=== PATIENT | male | born 1955 | race Caucasian/White ===

== ENCOUNTER → 2017-10-30 | Day surgery (SDC) | payer MEDICARE, MEDICAID ==
[~2017-10-30] MED LIST: PROPOFOL 20 ML IV
[2017-10-30 08:43] LABS: POC GLUCOSE 83 mg/dL (70-99)
== END | disposition home or self-care (01) ==
LOC: SURG 08:32
DX: Z43.1 Encounter for attention to gastrostomy (principal); K21.0 Gastro-esophageal reflux disease with esophagitis; K22.8 Other specified diseases of esophagus; I25.2 Old myocardial infarction; E11.9 Type 2 diabetes mellitus without complications; G40.909 Epilepsy, unspecified, not intractable, without status epilepticus; F25.9 Schizoaffective disorder, unspecified; F32.9 Major depressive disorder, single episode, unspecified; I26.99 Other pulmonary embolism without acute cor pulmonale; Z79.82 Long term (current) use of aspirin; Z79.899 Other long term (current) drug therapy
CPT/HCPCS: 43239; 43247; 82962; 88305; J2704

== ENCOUNTER 2018-07-10 06:04 | Observation (INO) | payer MEDICARE, MEDICAID ==
[2018-07-10] VITALS (10 sets, daily range): BP systolic 107–140; BP diastolic 70–95
[~2018-07-10] VITALS: Ht 188 cm; Wt 79.4 kg
[~2018-07-10 06:04] MED LIST changes: +ACET325T9 PO; +ACET500T68 PO; +ALPR0.254 PO; +AMIO200T4 PO; +ASPI325T8 PO; +ASPI81TA50 PO; +BUSP15TA PO; +FAMO20TA5 PO; +FOLI1TAB16 PO; +GABA-585 PO; +IPRA0.2S5 NEB; +LACT1CAP24 PO; +LMFO1TAB PO; +MELA3TAB2 PO; +MIRT15TA3 PO; +OMEP20TA8 PO; +POLY17PO29 PO; -PROPOFOL 20 ML IV; +QUET25TA5 PO; +QUET50TA5 PO; +RIVA15TA PO; +SERT100T PO; +SIMV10TA3 PO; +THIA100T8 PO; +VALP250S3 PO
[2018-07-10] MEDS ORDERED: DEXAMETHASONE SOD PHOS 20 MG/5 ML VIAL. ONE (06:31)
[2018-07-10] MEDS ORDERED: ONDANSETRON PF 4 MG/2 ML VIAL. ONE (06:31)
[2018-07-10] MEDS ORDERED: LIDOCAINE 2% PF 5 ML VIAL. ONE ×2 (06:31)
[2018-07-10] MEDS ORDERED: ROCURONIUM 50 MG/5 ML VIAL. ONE (06:32)
[2018-07-10] MEDS ORDERED: IV RINGERS,LACTATED 1000ML 1,000 ML IV SCH (07:00)
[2018-07-10] MEDS ORDERED: DEXTROSE 50% 25 GM / 50ML DISP.SYRIN. IV ONE (07:00)
[2018-07-10] MEDS ORDERED: LIDOCAINE 1% PF 2 ML VIAL. ID PRN (07:00)
[2018-07-10] MEDS ORDERED: HYDROmorphone 2 MG/ML VIAL IV PRN ×2 (07:00→09:00)
[2018-07-10] MEDS ORDERED: PROCHLORPERAZINE 10 MG/2 ML VIAL. IV PRN (07:00)
[2018-07-10] MEDS ORDERED: ONDANSETRON PF 4 MG/2 ML VIAL. IV PRN (07:00)
[2018-07-10] MEDS ORDERED: MORPHINE SULFATE 4 MG/ML VIAL. IV PRN (07:00)
[2018-07-10] MEDS ORDERED: fentaNYL PF VIAL 100 MCG/2 ML VIAL IV PRN (07:00)
[2018-07-10] MEDS ORDERED: fentaNYL PF VIAL 100 MCG/2 ML VIAL ONE (07:17)
[2018-07-10] MEDS ORDERED: ETOMIDATE 20 MG/10 ML VIAL. IV ONE (07:17)
[2018-07-10] MEDS ORDERED: MIDAZOLAM HCL/PF 2 MG/2 ML VIAL. ONE (07:22)
[2018-07-10] MEDS ORDERED: GLYCOPYRROLATE 1 MG/5 ML VIAL. ONE (07:35)
[2018-07-10] MEDS ORDERED: NEOSTIGMINE 10 MG/10 ML VIAL. ONE (07:47)
[2018-07-10] MEDS ORDERED: SEVOFLURANE 61 TO 120 MINUTES. IH ONE (07:48)
[2018-07-10] MEDS ORDERED: hydrALAZINE 20 MG/ML VIAL. ONE (08:11)
[2018-07-10] MEDS ORDERED: IV 1/2 NORMAL SALINE 1,000 ML IV SCH (08:47)
--- NOTE | 2018-07-10 08:57 | PDOC4 ---
Operative Note Operative Note Operative Note: Preoperative Diagnosis: Ventral hernia Postoperative Diagnosis: Same Procedure: Ventral hernia repair with mesh Surgeon: Florentino Anesthesia: Gen. Harness Fitter: Daiana Petersen EBL: 10 mL Specimen: None Drains: None Complications: None Indication: The patient is a 62-year-old male who is referred because of an upper abdominal hernia that resulted following placement of the PEG tube. He requests operative repair and the details of surgery were discussed. The risks were also noted which include bleeding, infection, recurrence, pain, anesthetic risk, visceral injury, potential need for additional surgery or procedure. He understands and would like to proceed. Description: The patient was taken to the operating room and placed supine on the operating table. Gen. anesthesia was performed. The abdomen was prepped with ChloraPrep and draped with sterile towels, sheets, and an Ioban. A vertical midline incision was made in the upper abdomen overlying the hernia. Cautery dissection was carried down to the fascia. The margins of the hernia defect were delineated. The hernia measured approximately 2.5 cm in diameter. A preperitoneal plane was then developed circumferentially around the border of the hernia defect. A medium sized Ventralex ST mesh was then placed in this preperitoneal plane. The mesh was sutured to the fascia at the 12, 3, 6, 9:00 positions using 0 Prolene in a horizontal mattress fashion. The mesh rested well providing full coverage with overlap of the hernia defect. The fascial edges were closed over the mesh with 0 Prolene. The subcutaneous tissue was approximated with 3-0 Vicryl and the skin was closed with 4-0 Monocryl. A sterile dressing was then applied. The patient tolerated the procedure well and was sent to the recovery room in stable condition. At the end of the case all counts were correct. JENNY GRAVES MD Jul 10, 2018 08:57
[2018-07-10] MEDS: fentaNYL PF VIAL 100 MCG/2 ML VIAL IV PRN ×3 (09:00→10:05)
[2018-07-10] MEDS: GABAPENTIN 100 MG CAPSULE. PO SCH ×4 (09:00→20:51)
[2018-07-10] MEDS ORDERED: ALPRAZolam 0.25 MG TABLET PO PRN (09:00)
[2018-07-10] MEDS: AMIODARONE HCL 200 MG TABLET. PO SCH (09:00)
[2018-07-10] MEDS ORDERED: oxyCODONE/APAP 5/325 1 TAB TABLET PO PRN ×2 (09:00)
[2018-07-10] MEDS ORDERED: 0.9 % SODIUM CHLORIDE 10 ML DISP.SYRIN. IV PRN (09:00)
[2018-07-10] MEDS: POLYETHYLENE GLYCOL 3350 17 GM PACKET. PO SCH (09:00)
[2018-07-10] MEDS: LACTOBACILLUS RHAMNOSUS GG 1 CAPSULE. PO SCH ×3 (09:00→20:51)
[2018-07-10] MEDS: VALPROIC ACID 250 MG CAPSULE. PO SCH ×2 (09:15→20:51)
[2018-07-10] MEDS: QUEtiapine 25 MG TABLET. PO SCH ×4 (09:15→20:51)
[2018-07-10] MEDS: busPIRone 10 MG TABLET. PO SCH ×3 (09:15→20:50)
--- NOTE | 2018-07-10 11:00 | NUR ---
pt arrived to floor from PACU in stable condition at 1015. pt is alert but confused (slight confusion is pt baseline per mother). mother is at bedside. pt is not complaining of any pain at this time. pt is on 2LNC. pt dressing is CDI. received report from SALEEM Ramos in PACU. will continue to monitor.
[2018-07-10] MEDS: PANTOPRAZOLE 40 MG TABLET.DR. PO SCH (11:19)
[2018-07-10] MEDS ORDERED: LORA0.5T96 PO (11:51)
[2018-07-10] MEDS ORDERED: MULT1TAB52 PO (11:51)
[2018-07-10] MEDS ORDERED: GUAI473L15 PO (11:51)
[2018-07-10] MEDS ORDERED: MELA3TAB2 PO (11:51)
[2018-07-10] MEDS ORDERED: BISA-42 RC (11:51)
[2018-07-10] MEDS ORDERED: ALBU0.63 NEB (11:51)
[2018-07-10] MEDS: ONDANSETRON PF 4 MG/2 ML VIAL. IV PRN (12:47)
[2018-07-10] MEDS: DOCUSATE SODIUM 100 MG CAPSULE. PO SCH ×2 (12:48→20:51)
[2018-07-10] MEDS: ASPIRIN 325 MG TABLET PO SCH (12:48)
[2018-07-10] MEDS: SERTRALINE 50 MG TABLET. PO SCH (12:48)
[2018-07-10] MEDS ORDERED: NON FORMULARY ITEM (Melatonin 3 MG) PO PRN (15:00)
[2018-07-10] MEDS ORDERED: guaiFENesin/CODEINE 100mg/10mg 5 ML LIQUID PO PRN (15:00)
[2018-07-10] MEDS ORDERED: ALBUTEROL SULFATE 2.5 MG/3 ML NEBU. NEB PRN (15:00)
[2018-07-10] MEDS ORDERED: LORazepam 0.5 MG TABLET PO PRN (15:00)
--- NOTE | 2018-07-10 15:36 | PDOC1 ---
History and Physical Date of Admission Date of Admission DATE: 07/10/18 TIME: 15:31 Source Source: Chart review, Patient History of Present Illness History of Present Illness elective admit s/p ventral hernia repair Prior abd problem known, started after PEG removed, PEG had been placed about a year ago s/p HI x2 cardiac arrest and resp failure due to CHF. he had been at [facility] November 2017, when PEG removed, and he reports still living there he is either confused post-op or has ongoing chronic confusion. Family History Family History: Other Social History Smoke: No ALCOHOL: none Drugs: None Current Medications Current Medications Current Medications Ondansetron HCl (Zofran) 4 mg PRN Q6HRS PRN IV NAUSEA/VOMITING; Start 07/10/18 at 07:00; Stop 07/11/18 at 06:59 Fentanyl Citrate (Fentanyl 2ml Vial) 25 mcg PRN Q5MIN PRN IV MILD PAIN; Start 07/10/18 at 07:00; Stop 07/11/18 at 06:59 Fentanyl Citrate (Fentanyl 2ml Vial) 50 mcg PRN Q5MIN PRN IV MODERATE TO SEVERE PAIN Last administered on 07/10/18at 10:05; Start 07/10/18 at 07:00; Stop 07/11/18 at 06:59 Morphine Sulfate (Morphine Sulfate) 1 mg PRN Q10MIN PRN IV SEVERE PAIN; Start 07/10/18 at 07:00; Stop 07/11/18 at 06:59 Ringer's Solution 1,000 ml @ 30 mls/hr Q24H IV Last administered on 07/10/18at 06:42; Start 07/10/18 at 07:00; Stop 07/10/18 at 18:59 Lidocaine HCl (Xylocaine-Mpf 1% 2ml Vial) 2 ml PRN 1X PRN ID IV START; Start at 07:00; Stop 07/11/18 at 06:59 Hydromorphone HCl (Dilaudid) 0.5 mg PRN Q10MIN PRN IV SEV PAIN, Second choice; Start 07/10/18 at 07:00; Stop 07/11/18 at 06:59 Prochlorperazine Edisylate (Compazine) 5 mg PACU PRN PRN IV NAUSEA, MRX1; Start 07/10/18 at 07:00; Stop 07/11/18 at 06:59 Cefazolin Sodium/ Dextrose 50 ml @ 100 mls/hr 1X PREOP PRN IV PRE-OP Last administered on 07/10/18at 07:30; Start 07/10/18 at 06:00; Stop 07/11/18 at 21:00 Lidocaine HCl (Lidocaine Pf 2% Vial) 5 ml STK-MED ONCE .ROUTE ; Start 07/10/18 at 06:31; Stop 07/10/18 at 06:32; Status DC Lidocaine HCl (Lidocaine Pf 2% Vial) 5 ml STK-MED ONCE .ROUTE ; Start 07/10/18 at 06:31; Stop 07/10/18 at 06:32; Status DC Dexamethasone Sodium Phosphate (Decadron) 20 mg STK-MED ONCE .ROUTE ; Start at 06:31; Stop 07/10/18 at 06:32; Status DC Ondansetron HCl (Zofran) 4 mg STK-MED ONCE .ROUTE ; Start 07/10/18 at 06:31; Stop 07/10/18 at 06:32; Status DC Rocuronium [place] (Zemuron) 50 mg STK-MED ONCE .ROUTE ; Start 07/10/18 at 06:32 ; Stop 07/10/18 at 06:33; Status DC Dextrose (Dextrose 50%-Water Syringe) 25 gm 1X ONCE IV Last administered on at 07:10; Start 07/10/18 at 07:00; Stop 07/10/18 at 07:01; Status DC Etomidate (Amidate) 20 mg STK-MED ONCE IV ; Start 07/10/18 at 07:17; Stop at 07:18; Status DC Fentanyl Citrate (Fentanyl 2ml Vial) 100 mcg STK-MED ONCE .ROUTE ; Start at 07:17; Stop 07/10/18 at 07:18; Status DC Midazolam HCl (Versed) 2 mg STK-MED ONCE .ROUTE ; Start 07/10/18 at 07:22; Stop 07/10/18 at 07:23; Status DC Glycopyrrolate (Robinul) 1 mg STK-MED ONCE .ROUTE ; Start 07/10/18 at 07:35; Stop 07/10/18 at 07:36; Status DC Neostigmine Methylsulfate (Bloxiverz) 10 mg STK-MED ONCE .ROUTE ; Start at 07:47; Stop 07/10/18 at 07:48; Status DC Sevoflurane (Ultane) 60 ml STK-MED ONCE IH ; Start 07/10/18 at 07:48; Stop 07/10 at 07:49; Status DC Hydralazine HCl (Apresoline Inj) 20 mg STK-MED ONCE .ROUTE ; Start 07/10/18 at 08:11; Stop 07/10/18 at 08:12; Status DC Sodium Chloride (Normal Saline Flush) 3 ml QSHIFT PRN IV AFTER MEDS AND BLOOD DRAWS; Start 07/10/18 at 09:00 Sodium Chloride 1,000 ml @ 80 mls/hr [id number] IV Last administered on at 12:28; Start 07/10/18 at 08:47 Oxycodone/ Acetaminophen (Percocet 5/325) 1 tab PRN Q4HRS PRN PO MILD PAIN, 1ST CHOICE; Start 07/10/18 at 09:00 Oxycodone/ Acetaminophen (Percocet 5/325) 2 tab PRN Q4HRS PRN PO MODERATE PAIN , SEVERE PAIN; Start 07/10/18 at 09:00 Hydromorphone HCl (Dilaudid) 0.2 mg PRN Q1HR PRN IV PAIN Last administered on at 12:58; Start 07/10/18 at 09:00 Docusate Sodium (Colace) 100 mg BID PO Last administered on 07/10/18at 12:48; Start 07/10/18 at 09:00 Ondansetron HCl (Zofran) 4 mg PRN Q6HRS PRN IV NAUESA, 1ST CHOICE Last administered on 07/10/18at 12:47; Start 07/10/18 at 09:00 Alprazolam (Xanax) 0.25 mg PRN Q6HRS PRN PO ANXIETY / AGITATION; Start at 09:00 Amiodarone HCl (Cordarone) 200 mg DAILY PO ; Start 07/10/18 at 09:00 Aspirin (Durga Aspirin) 325 mg DAILY PO Last administered on 07/10/18at 12:48; Start 07/10/18 at 09:00 Gabapentin (Neurontin) 100 mg QID PO Last administered on 07/10/18at 12:48; Start 07/10/18 at 09:00 Simvastatin (Zocor) 10 mg QHS PO ; Start 07/10/18 at 21:00 Buspirone HCl (Buspar) 20 mg TID PO Last administered on 07/10/18at 12:48; Start 07/10/18 at 09:15 Lactobacillus Rhamnosus (Culturelle) 1 cap TID PO Last administered on at 12:48; Start 07/10/18 at 09:00 Non-Formulary Medication (Melatonin ) 3 mg QHS PO ; Start 07/10/18 at 21:00; Status UNV Mirtazapine (Remeron) 15 mg QHS PO ; Start 07/10/18 at 21:00 Pantoprazole Sodium (Protonix) 40 mg DAILYAC PO ; Start 07/10/18 at 11:30 Polyethylene Glycol (miraLAX PACKET) 17 gm DAILY PO ; Start 07/10/18 at 09:00 Quetiapine Fumarate (SEROquel) 25 mg QID PO Last administered on 07/10/18at 12: 48; Start 07/10/18 at 09:15 Sertraline HCl (Zoloft) 100 mg DAILY PO Last administered on 07/10/18at 12:48; Start 07/10/18 at 10:00 Valproic Acid (Depakene) 250 mg BID PO ; Start 07/10/18 at 09:15 Lorazepam (Ativan) 0.5 mg PRN Q6HRS PRN PO ANXIETY / AGITATION 1ST CHOICE; Start 07/10/18 at 15:00 Albuterol Sulfate (Ventolin Neb Soln) 2.5 mg PRN Q6HRS PRN NEB SHORTNESS OF BREATH; Start 07/10/18 at 15:00 Guaifenesin/ Codeine Phosphate (Robitussin Ac) 5 ml PRN Q4HRS PRN PO COUGH; Start 07/10/18 at 15:00 Non-Formulary Medication (Melatonin ) 3 mg PRN QHS PRN PO INSOMNIA; Start 07/10 at 15:00; Status UNV Multivitamins (Thera M Plus) 1 tab DAILY PO ; Start 2/21/19 at 09:00 Albuterol/ Ipratropium (Duoneb) 3 ml RTQID NEB ; Start 07/10/18 at 16:00 Active Scripts Active Reported Multivitamins (Multivitamin) 1 Each Tablet 1 Tab PO DAILY Ativan (Lorazepam) 0.5 Mg Tablet 0.5 Mg PO PRN Q6HRS PRN Guaifenesin Ac Cough Syrup (Guaifenesin/Codeine Phosphate) 473 Ml Liquid 10 Ml PO PRN Q4HRS PRN Melatonin 3 Mg Tablet 3 Mg PO PRN QHS PRN Albuterol Sulfate Neb Soln (Albuterol Sulfate) 0.63 Mg/3 Ml Vial.neb 0.5 Mg NEB PRN Q6HRS PRN Dulcolax (Bisacodyl) 5 Mg Tablet.dr 10 Mg RC PRN DAILY PRN Tylenol (Acetaminophen) 325 Mg Tablet 2 Tab PO PRN Q6HRS PRN Alprazolam 0.25 Mg Tablet 0.25 Mg PO PRN Q8HRS PRN Aspirin 325 Mg Tablet 325 Mg PO DAILY Melatonin 3 Mg Tablet 5 Mg PO QHS Omeprazole 20 Mg Tablet.dr 20 Mg PO DAILY Xarelto (Rivaroxaban) 15 Mg Tablet 15 Mg PO DAILY Ipratropium [place] 0.2 Mg/1 Ml Solution 1 Vial NEB QID Miralax (Polyethylene Glycol 3350) 17 Gm Powd.pack 1 Packet PO DAILY Valproic Acid (Valproate Sodium) 250 Mg/5 Ml Solution 1,250 Mg PO BID Simvastatin 10 Mg Tablet 1 Tab PO QHS Acidophilus Lactobacillus (Lactobacillus Acidophilus) 1 Each Capsule 1 Each PO DAILY Gabapentin (Gabapentin) 100 Mg Capsule 100 Mg PO QID Amiodarone Hcl 200 Mg Tablet 1 Tab PO DAILY Seroquel (Quetiapine Fumarate) 25 Mg Tablet 1 Tab PO BID Zoloft (Sertraline Hcl) 100 Mg Tablet 1 Tab PO DAILY Mirtazapine 15 Mg Tablet 1 Tab PO QHS Buspirone Hcl 15 Mg Tablet 20 Mg PO TID Allergies Allergies: Coded Allergies: No Known Drug Allergies (Unverified , 07/10/18) ROS General: YES: Fatigue; No: Chills, Night Sweats, Malaise, Appetite, Other PSYCHOLOGICAL ROS: No: Anxiety, Behavioral Disorder, Concentration difficultie , Decreased libido, Depression, Disorientation, Hallucinations, Hostility, Irritablity, Memory difficulties, Mood Swings, Obsessive thoughts, Physical abuse, Sexual abuse, Sleep disturbances, Suicidal ideation, Other HEENT: No: Heacaches, Visual Changes, Hearing change, Nasal congestion, Nasal discharge, Oral lesions, Sinus pain, Sore Throat, Epistaxis, Sneezing, Snoring, Tinnitus, Vertigo, Vocal changes, Other Respiratory: No: Cough, Hemoptysis, Orthopnea, Pleuritic Pain, Shortness of breath, SOB with excertion, Sputum Changes, Stridor, Tachypnea, Wheezing, Other Cardiovascular: No Chest Pain, No Palpitations, No Orthopnea, No Paroxysmal Noc. Dyspnea, No Edema, No Lt Headedness, No Other Gastrointestinal: Yes Nausea, Yes Abdominal Pain; No Vomiting, No Diarrhea, No Constipation, No Melena, No Hematochezia, No Other Genitourinary: No Dysuria, No Frequency, No Incontinence, No Hematuria, No Retention, No Discharge, No Urgency, No Pain, No Flank Pain, No Other, No , No , No , No , No , No , No Musculoskeletal: No Gait Disturbance, No Joint Pain, No Joint Stiffness, No Joint Swelling, No Muscle Pain, No Muscular Weakness, No Pain In:, No Swelling In:, No Other Neurological: No Behavorial Changes, No Bowel/Bladder ControlChng, No Confusion , No Dizziness, No Gait Disturbance, No Headaches, No Impaired Coord/balance, No Memory Loss, No Numbness/Tingling, No Seizures, No Speech Problems, No Tremors, No Visual Changes, No Weakness, No Other Skin: No Dry Skin, No Eczema, No Hair Changes, No Lumps, No Mole Changes, No Mottling, No Nail Changes, No Pruritus, No Rash, No Skin Lesion Changes, No Other, No Acne Physical Exam General: Alert, Cooperative, No acute distress HEENT: PERRLA, EOMI, Mucous membr. moist/pink Lungs: Normal air movement Heart: no gallops, no murmurs Abdomen: Normal bowel sounds, Soft Rectal Exam: not examined Extremities: No cyanosis, No edema, Normal pulses Skin: No rashes, No significant lesion Neuro: Normal speech, Normal tone, Sensation intact, Cranial nerves 3-12 NL Psych/Mental Status: Mental status NL, Mood NL Vitals Vitals Vital Signs Date Time Temp Pulse Resp B/P (MAP) Pulse Ox O2 Delivery O2 Flow Rate FiO2 07/10/18 13:38 Nasal Cannula 2.0 07/10/18 13:15 89 136/95 (109) 99 07/10/18 10:30 18 07/10/18 10:00 98.2 98.2 Labs Labs Laboratory Tests Test 07/10/18 06:40 07/10/18 07:28 07/10/18 08:53 07/10/18 11:28 Glucose (Fingerstick) 68 mg/dL (70-99) 127 mg/dL (70-99) 85 mg/dL (70-99) 117 mg/dL (70-99) Laboratory Tests Test 07/10/18 06:40 07/10/18 07:28 07/10/18 08:53 07/10/18 11:28 Glucose (Fingerstick) 68 mg/dL (70-99) 127 mg/dL (70-99) 85 mg/dL (70-99) 117 mg/dL (70-99) VTE Prophylaxis Ordered VTE Prophylaxis Devices: Yes VTE Pharmacological Prophylaxi: No Assessment/Plan Assessment/Plan ventral hernia encephalopathy, baseline unknown, asthma GERd seizure d./o, poss bipolar, odd affect post-op DIMITRI MOJICA MD Jul 10, 2018 15:36
[2018-07-10] MEDS: IPRATRPIUM/ALBUTEROL 0.5/2.5MG 3 ML NEBU. NEB SCH ×2 (16:49→19:53)
[2018-07-10] MEDS ORDERED: MIRTAZAPINE 15 MG TABLET PO SCH (21:00)
[2018-07-10] MEDS ORDERED: NON FORMULARY ITEM (Melatonin 3 MG) PO SCH (21:00)
[2018-07-10] MEDS ORDERED: SIMVASTATIN 10 MG TABLET PO SCH (21:00)
[2018-07-11] MEDS: ONDANSETRON PF 4 MG/2 ML VIAL. IV PRN (02:45)
[2018-07-11 03:00] VITALS: BP 106/44
[2018-07-11] MEDS: PANTOPRAZOLE 40 MG TABLET.DR. PO SCH (06:02)
[2018-07-11 06:20] VITALS: BP 139/79
[2018-07-11 07:00] VITALS: BP 132/82
[2018-07-11] MEDS: IPRATRPIUM/ALBUTEROL 0.5/2.5MG 3 ML NEBU. NEB SCH ×3 (08:19→14:46)
[2018-07-11] MEDS: ASPIRIN 325 MG TABLET PO SCH (08:41)
[2018-07-11] MEDS: LACTOBACILLUS RHAMNOSUS GG 1 CAPSULE. PO SCH ×2 (08:41→13:38)
[2018-07-11] MEDS: QUEtiapine 25 MG TABLET. PO SCH ×2 (08:41→13:38)
[2018-07-11] MEDS: busPIRone 10 MG TABLET. PO SCH ×2 (08:41→13:38)
[2018-07-11] MEDS: SERTRALINE 50 MG TABLET. PO SCH (08:41)
[2018-07-11] MEDS: VALPROIC ACID 250 MG CAPSULE. PO SCH (08:41)
[2018-07-11] MEDS: GABAPENTIN 100 MG CAPSULE. PO SCH ×2 (08:41→13:38)
[2018-07-11] MEDS: DOCUSATE SODIUM 100 MG CAPSULE. PO SCH (08:41)
[2018-07-11] MEDS: AMIODARONE HCL 200 MG TABLET. PO SCH (08:42)
[2018-07-11] MEDS: POLYETHYLENE GLYCOL 3350 17 GM PACKET. PO SCH ×2 (08:42→08:45)
[2018-07-11] MEDS ORDERED: MULTIVITAMIN with MINERAL TABLET. PO SCH (09:00)
--- NOTE | 2018-07-11 10:23 | PDOC ---
SURGICAL PROGRESS NOTE Subjective had some emesis early this am up to bathroom with assist impulsive Vital Signs Vital Signs Date Time Temp Pulse Resp B/P (MAP) Pulse Ox O2 Delivery O2 Flow Rate FiO2 07/11/18 08:42 78 132/82 07/11/18 08:22 94 Room Air 07/11/18 07:00 99.7 18 99.7 07/10/18 13:38 2.0 I&O Intake and Output 07/11/18 07:00 Intake Total 2470 ml Output Total 720 ml Balance 1750 ml Intake Oral 120 ml IV Total 2350 ml Output Urine Total 100 ml Emesis 600 ml Estimated Blood Loss 20 ml # Voids 9 General: Cooperative, No acute distress Abdomen: Soft, Other (dressing dry, binder in place) Labs Laboratory Tests Test 07/10/18 06:40 07/10/18 07:28 07/10/18 08:53 07/10/18 11:28 Glucose (Fingerstick) 68 mg/dL (70-99) 127 mg/dL (70-99) 85 mg/dL (70-99) 117 mg/dL (70-99) Laboratory Tests Test 07/10/18 11:28 Glucose (Fingerstick) 117 mg/dL (70-99) Problem List s/p VIH diet as tolerated SW for DC planning IPC following MINDI PEÑA APRN Jul 11, 2018 10:23
[2018-07-11 10:45] LABS: BASO % 0 % (0-3); EOS % 0 % (0-3); HEMATOCRIT 36.8 % (39.0-53.0); HEMOGLOBIN 12.2 g/dL (13.0-17.5); LYMPH # 1.3 x10^3/uL (1.0-4.8); LYMPH % 13 % (24-48); MEAN CORPUSCULAR HEMOGLOBIN 32 pg (25-35); MEAN CORPUSCULAR HGB CONC 33 g/dL (31-37); MEAN CORPUSCULAR VOLUME 95 fL (79-100); MONO # 1.3 x10^3/uL (0.0-1.1); MONO % 12 % (0-9); NEUT # 7.9 x10^3uL (1.8-7.7); NEUT % 75 % (31-73); PLATELET COUNT 154 x10^3/uL (140-400); RED BLOOD COUNT 3.87 x10^6/uL (4.30-5.70); RED CELL DISTRIBUTION WIDTH 14.4 % (11.5-14.5); WHITE BLOOD COUNT 10.6 x10^3/uL (4.0-11.0)
[2018-07-11 11:00] VITALS: BP 125/76
[2018-07-11 11:19] LABS: ALBUMIN 3.1 g/dL (3.4-5.0); ALBUMIN/GLOBULIN RATIO 0.9 (1.0-1.7); CALCIUM 8.8 mg/dL (8.5-10.1); CREATININE 0.9 mg/dL (0.7-1.3); GFR 85.8; POTASSIUM 3.4 mmol/L (3.5-5.1); TOTAL BILIRUBIN 0.3 mg/dL (0.2-1.0); TOTAL PROTEIN 6.7 g/dL (6.4-8.2)
--- NOTE | 2018-07-11 12:52 | NUR ---
SS following for discharge planning. SS received notification that pt was a resident at [facility], ; fax [phone]. SS contacted [facility] and verified that pt was a LTC resident from there facility and was able to return when medically stable for discharge. SS phoned and faxed clinical updates to [facility]. SS will await discharge orders and will proceed accordingly.
--- NOTE | 2018-07-11 14:21 | PDOC ---
PROGRESS NOTES Chief Complaint Chief Complaint ventral hernia encephalopathy, baseline unknown, asthma, chronic GERD seizure d./o, poss bipolar, odd affect post-op History of Present Illness History of Present Illness cont current pain ok pt and Ot, plan SNU, Vitals Vitals Vital Signs Date Time Temp Pulse Resp B/P (MAP) Pulse Ox O2 Delivery O2 Flow Rate FiO2 07/11/18 11:00 98.6 78 18 125/76 (92) 98 Room Air 98.6 07/10/18 13:38 2.0 Physical Exam General: Cooperative, No acute distress Abdomen: Soft, Other (dressing dry, binder in place) Extremities: No cyanosis, No edema, Normal pulses Skin: No rashes, No significant lesion Labs LABS Laboratory Tests Test 07/11/18 10:30 07/11/18 11:43 White Blood Count 10.6 x10^3/uL (4.0-11.0) Red Blood Count 3.87 x10^6/uL (4.30-5.70) Hemoglobin 12.2 g/dL (13.0-17.5) Hematocrit 36.8 % (39.0-53.0) Mean Corpuscular Volume 95 fL (79-100) Mean Corpuscular Hemoglobin 32 pg (25-35) Mean Corpuscular Hemoglobin Concent 33 g/dL (31-37) Red Cell Distribution Width 14.4 % (11.5-14.5) Platelet Count 154 x10^3/uL (140-400) Neutrophils (%) (Auto) 75 % (31-73) Lymphocytes (%) (Auto) 13 % (24-48) Monocytes (%) (Auto) 12 % (0-9) Eosinophils (%) (Auto) 0 % (0-3) Basophils (%) (Auto) 0 % (0-3) Neutrophils # (Auto) 7.9 x10^3uL (1.8-7.7) Lymphocytes # (Auto) 1.3 x10^3/uL (1.0-4.8) Monocytes # (Auto) 1.3 x10^3/uL (0.0-1.1) Eosinophils # (Auto) 0.0 x10^3/uL (0.0-0.7) Basophils # (Auto) 0.0 x10^3/uL (0.0-0.2) Sodium Level 143 mmol/L (136-145) Potassium Level 3.4 mmol/L (3.5-5.1) Chloride Level 106 mmol/L (98-107) Carbon Dioxide Level 27 mmol/L (21-32) Anion Gap 10 (6-14) Blood Urea Nitrogen 13 mg/dL (8-26) Creatinine 0.9 mg/dL (0.7-1.3) Estimated GFR (Cockcroft-Gault) 85.8 BUN/Creatinine Ratio 14 (6-20) Glucose Level 100 mg/dL (70-99) Calcium Level 8.8 mg/dL (8.5-10.1) Total Bilirubin 0.3 mg/dL (0.2-1.0) Aspartate Amino Transf (AST/SGOT) 16 U/L (15-37) Alanine Aminotransferase (ALT/SGPT) 25 U/L (16-63) Alkaline Phosphatase 90 U/L (46-116) Total Protein 6.7 g/dL (6.4-8.2) Albumin 3.1 g/dL (3.4-5.0) Albumin/Globulin Ratio 0.9 (1.0-1.7) Glucose (Fingerstick) 80 mg/dL (70-99) Comment Review of Relevant I have reviewed the following items rian (where applicable) has been applied. Labs Laboratory Tests Test 07/10/18 06:40 07/10/18 07:28 07/10/18 08:53 07/10/18 11:28 Glucose (Fingerstick) 68 mg/dL (70-99) 127 mg/dL (70-99) 85 mg/dL (70-99) 117 mg/dL (70-99) Test 07/11/18 10:30 07/11/18 11:43 White Blood Count 10.6 x10^3/uL (4.0-11.0) Red Blood Count 3.87 x10^6/uL (4.30-5.70) Hemoglobin 12.2 g/dL (13.0-17.5) Hematocrit 36.8 % (39.0-53.0) Mean Corpuscular Volume 95 fL (79-100) Mean Corpuscular Hemoglobin 32 pg (25-35) Mean Corpuscular Hemoglobin Concent 33 g/dL (31-37) Red Cell Distribution Width 14.4 % (11.5-14.5) Platelet Count 154 x10^3/uL (140-400) Neutrophils (%) (Auto) 75 % (31-73) Lymphocytes (%) (Auto) 13 % (24-48) Monocytes (%) (Auto) 12 % (0-9) Eosinophils (%) (Auto) 0 % (0-3) Basophils (%) (Auto) 0 % (0-3) Neutrophils # (Auto) 7.9 x10^3uL (1.8-7.7) Lymphocytes # (Auto) 1.3 x10^3/uL (1.0-4.8) Monocytes # (Auto) 1.3 x10^3/uL (0.0-1.1) Eosinophils # (Auto) 0.0 x10^3/uL (0.0-0.7) Basophils # (Auto) 0.0 x10^3/uL (0.0-0.2) Sodium Level 143 mmol/L (136-145) Potassium Level 3.4 mmol/L (3.5-5.1) Chloride Level 106 mmol/L (98-107) Carbon Dioxide Level 27 mmol/L (21-32) Anion Gap 10 (6-14) Blood Urea Nitrogen 13 mg/dL (8-26) Creatinine 0.9 mg/dL (0.7-1.3) Estimated GFR (Cockcroft-Gault) 85.8 BUN/Creatinine Ratio 14 (6-20) Glucose Level 100 mg/dL (70-99) Calcium Level 8.8 mg/dL (8.5-10.1) Total Bilirubin 0.3 mg/dL (0.2-1.0) Aspartate Amino Transf (AST/SGOT) 16 U/L (15-37) Alanine Aminotransferase (ALT/SGPT) 25 U/L (16-63) Alkaline Phosphatase 90 U/L (46-116) Total Protein 6.7 g/dL (6.4-8.2) Albumin 3.1 g/dL (3.4-5.0) Albumin/Globulin Ratio 0.9 (1.0-1.7) Glucose (Fingerstick) 80 mg/dL (70-99) Laboratory Tests Test 07/11/18 10:30 07/11/18 11:43 White Blood Count 10.6 x10^3/uL (4.0-11.0) Red Blood Count 3.87 x10^6/uL (4.30-5.70) Hemoglobin 12.2 g/dL (13.0-17.5) Hematocrit 36.8 % (39.0-53.0) Mean Corpuscular Volume 95 fL (79-100) Mean Corpuscular Hemoglobin 32 pg (25-35) Mean Corpuscular Hemoglobin Concent 33 g/dL (31-37) Red Cell Distribution Width 14.4 % (11.5-14.5) Platelet Count 154 x10^3/uL (140-400) Neutrophils (%) (Auto) 75 % (31-73) Lymphocytes (%) (Auto) 13 % (24-48) Monocytes (%) (Auto) 12 % (0-9) Eosinophils (%) (Auto) 0 % (0-3) Basophils (%) (Auto) 0 % (0-3) Neutrophils # (Auto) 7.9 x10^3uL (1.8-7.7) Lymphocytes # (Auto) 1.3 x10^3/uL (1.0-4.8) Monocytes # (Auto) 1.3 x10^3/uL (0.0-1.1) Eosinophils # (Auto) 0.0 x10^3/uL (0.0-0.7) Basophils # (Auto) 0.0 x10^3/uL (0.0-0.2) Sodium Level 143 mmol/L (136-145) Potassium Level 3.4 mmol/L (3.5-5.1) Chloride Level 106 mmol/L (98-107) Carbon Dioxide Level 27 mmol/L (21-32) Anion Gap 10 (6-14) Blood Urea Nitrogen 13 mg/dL (8-26) Creatinine 0.9 mg/dL (0.7-1.3) Estimated GFR (Cockcroft-Gault) 85.8 BUN/Creatinine Ratio 14 (6-20) Glucose Level 100 mg/dL (70-99) Calcium Level 8.8 mg/dL (8.5-10.1) Total Bilirubin 0.3 mg/dL (0.2-1.0) Aspartate Amino Transf (AST/SGOT) 16 U/L (15-37) Alanine Aminotransferase (ALT/SGPT) 25 U/L (16-63) Alkaline Phosphatase 90 U/L (46-116) Total Protein 6.7 g/dL (6.4-8.2) Albumin 3.1 g/dL (3.4-5.0) Albumin/Globulin Ratio 0.9 (1.0-1.7) Glucose (Fingerstick) 80 mg/dL (70-99) Medications Current Medications Ondansetron HCl (Zofran) 4 mg PRN Q6HRS PRN IV NAUSEA/VOMITING; Start 07/10/18 at 07:00; Stop 07/11/18 at 06:59; Status DC Fentanyl Citrate (Fentanyl 2ml Vial) 25 mcg PRN Q5MIN PRN IV MILD PAIN; Start 07/10/18 at 07:00; Stop 07/11/18 at 06:59; Status DC Fentanyl Citrate (Fentanyl 2ml Vial) 50 mcg PRN Q5MIN PRN IV MODERATE TO SEVERE PAIN Last administered on 07/10/18at 10:05; Start 07/10/18 at 07:00; Stop 07/11/18 at 06:59; Status DC Morphine Sulfate (Morphine Sulfate) 1 mg PRN Q10MIN PRN IV SEVERE PAIN; Start 07/10/18 at 07:00; Stop 07/11/18 at 06:59; Status DC Ringer's Solution 1,000 ml @ 30 mls/hr Q24H IV Last administered on 07/10/18at 06:42; Start 07/10/18 at 07:00; Stop 07/10/18 at 18:59; Status DC Lidocaine HCl (Xylocaine-Mpf 1% 2ml Vial) 2 ml PRN 1X PRN ID IV START; Start at 07:00; Stop 07/11/18 at 06:59; Status DC Hydromorphone HCl (Dilaudid) 0.5 mg PRN Q10MIN PRN IV SEV PAIN, Second choice; Start 07/10/18 at 07:00; Stop 07/11/18 at 06:59; Status DC Prochlorperazine Edisylate (Compazine) 5 mg PACU PRN PRN IV NAUSEA, MRX1; Start 07/10/18 at 07:00; Stop 07/11/18 at 06:59; Status DC Cefazolin Sodium/ Dextrose 50 ml @ 100 mls/hr 1X PREOP PRN IV PRE-OP Last administered on 07/10/18at 07:30; Start 07/10/18 at 06:00; Stop 07/11/18 at 21:00 Lidocaine HCl (Lidocaine Pf 2% Vial) 5 ml STK-MED ONCE .ROUTE ; Start 07/10/18 at 06:31; Stop 07/10/18 at 06:32; Status DC Lidocaine HCl (Lidocaine Pf 2% Vial) 5 ml STK-MED ONCE .ROUTE ; Start 07/10/18 at 06:31; Stop 07/10/18 at 06:32; Status DC Dexamethasone Sodium Phosphate (Decadron) 20 mg STK-MED ONCE .ROUTE ; Start at 06:31; Stop 07/10/18 at 06:32; Status DC Ondansetron HCl (Zofran) 4 mg STK-MED ONCE .ROUTE ; Start 07/10/18 at 06:31; Stop 07/10/18 at 06:32; Status DC Rocuronium [place] (Zemuron) 50 mg STK-MED ONCE .ROUTE ; Start 07/10/18 at 06:32 ; Stop 07/10/18 at 06:33; Status DC Dextrose (Dextrose 50%-Water Syringe) 25 gm 1X ONCE IV Last administered on at 07:10; Start 07/10/18 at 07:00; Stop 07/10/18 at 07:01; Status DC Etomidate (Amidate) 20 mg STK-MED ONCE IV ; Start 07/10/18 at 07:17; Stop at 07:18; Status DC Fentanyl Citrate (Fentanyl 2ml Vial) 100 mcg STK-MED ONCE .ROUTE ; Start at 07:17; Stop 07/10/18 at 07:18; Status DC Midazolam HCl (Versed) 2 mg STK-MED ONCE .ROUTE ; Start 07/10/18 at 07:22; Stop 07/10/18 at 07:23; Status DC Glycopyrrolate (Robinul) 1 mg STK-MED ONCE .ROUTE ; Start 07/10/18 at 07:35; Stop 07/10/18 at 07:36; Status DC Neostigmine Methylsulfate (Bloxiverz) 10 mg STK-MED ONCE .ROUTE ; Start at 07:47; Stop 07/10/18 at 07:48; Status DC Sevoflurane (Ultane) 60 ml STK-MED ONCE IH ; Start 07/10/18 at 07:48; Stop 07/10 at 07:49; Status DC Hydralazine HCl (Apresoline Inj) 20 mg STK-MED ONCE .ROUTE ; Start 07/10/18 at 08:11; Stop 07/10/18 at 08:12; Status DC Sodium Chloride (Normal Saline Flush) 3 ml QSHIFT PRN IV AFTER MEDS AND BLOOD DRAWS; Start 07/10/18 at 09:00 Sodium Chloride 1,000 ml @ 80 mls/hr [id number] IV Last administered on at 12:28; Start 07/10/18 at 08:47; Stop 07/10/18 at 21:55; Status DC Oxycodone/ Acetaminophen (Percocet 5/325) 1 tab PRN Q4HRS PRN PO MILD PAIN, 1ST CHOICE Last administered on 07/10/18at 18:07; Start 07/10/18 at 09:00 Oxycodone/ Acetaminophen (Percocet 5/325) 2 tab PRN Q4HRS PRN PO MODERATE PAIN , SEVERE PAIN; Start 07/10/18 at 09:00 Hydromorphone HCl (Dilaudid) 0.2 mg PRN Q1HR PRN IV PAIN Last administered on at 12:58; Start 07/10/18 at 09:00 Docusate Sodium (Colace) 100 mg BID PO Last administered on 07/11/18at 08:41; Start 07/10/18 at 09:00 Ondansetron HCl (Zofran) 4 mg PRN Q6HRS PRN IV NAUESA, 1ST CHOICE Last administered on 07/11/18at 02:45; Start 07/10/18 at 09:00 Alprazolam (Xanax) 0.25 mg PRN Q6HRS PRN PO ANXIETY / AGITATION; Start at 09:00 Amiodarone HCl (Cordarone) 200 mg DAILY PO Last administered on 07/11/18at 08:42 ; Start 07/10/18 at 09:00 Aspirin (Durga Aspirin) 325 mg DAILY PO Last administered on 07/11/18 08:41; Start 07/10/18 at 09:00 Gabapentin (Neurontin) 100 mg QID PO Last administered on 07/11/18 13:38; Start 07/10/18 at 09:00 Simvastatin (Zocor) 10 mg QHS PO Last administered on 07/10/18 20:51; Start at 21:00 Buspirone HCl (Buspar) 20 mg TID PO Last administered on 07/11/18 13:38; Start 07/10/18 at 09:15 Lactobacillus Rhamnosus (Culturelle) 1 cap TID PO Last administered on 13:38; Start 07/10/18 at 09:00 Non-Formulary Medication (Melatonin ) 3 mg QHS PO ; Start 07/10/18 at 21:00; Status UNV Mirtazapine (Remeron) 15 mg QHS PO Last administered on 07/10/18at 20:50; Start 07/10/18 at 21:00 Pantoprazole Sodium (Protonix) 40 mg DAILYAC PO Last administered on 07/11/18 06:02; Start 07/10/18 at 11:30 Polyethylene Glycol (miraLAX PACKET) 17 gm DAILY PO ; Start 07/10/18 at 09:00 Quetiapine Fumarate (SEROquel) 25 mg QID PO Last administered on 07/11/18 13: 38; Start 07/10/18 at 09:15 Sertraline HCl (Zoloft) 100 mg DAILY PO Last administered on 07/11/18 08:41; Start 07/10/18 at 10:00 Valproic Acid (Depakene) 250 mg BID PO Last administered on 07/11/18 08:41; Start 07/10/18 at 09:15 Lorazepam (Ativan) 0.5 mg PRN Q6HRS PRN PO ANXIETY / AGITATION 1ST CHOICE; Start 07/10/18 at 15:00 Albuterol Sulfate (Ventolin Neb Soln) 2.5 mg PRN Q6HRS PRN NEB SHORTNESS OF BREATH; Start 07/10/18 at 15:00 Guaifenesin/ Codeine Phosphate (Robitussin Ac) 5 ml PRN Q4HRS PRN PO COUGH; Start 07/10/18 at 15:00 Non-Formulary Medication (Melatonin ) 3 mg PRN QHS PRN PO INSOMNIA; Start 07/10 at 15:00; Status UNV Multivitamins (Thera M Plus) 1 tab DAILY PO Last administered on 07/11/18at 08: 41; Start 07/11/18 at 09:00 Albuterol/ Ipratropium (Duoneb) 3 ml RTQID NEB Last administered on 07/11/18at 08:19; Start 07/10/18 at 16:00 Active Scripts Active Reported Multivitamins (Multivitamin) 1 Each Tablet 1 Tab PO DAILY Ativan (Lorazepam) 0.5 Mg Tablet 0.5 Mg PO PRN Q6HRS PRN Guaifenesin Ac Cough Syrup (Guaifenesin/Codeine Phosphate) 473 Ml Liquid 10 Ml PO PRN Q4HRS PRN Melatonin 3 Mg Tablet 3 Mg PO PRN QHS PRN Albuterol Sulfate Neb Soln (Albuterol Sulfate) 0.63 Mg/3 Ml Vial.neb 0.5 Mg NEB PRN Q6HRS PRN Dulcolax (Bisacodyl) 5 Mg Tablet.dr 10 Mg RC PRN DAILY PRN Tylenol (Acetaminophen) 325 Mg Tablet 2 Tab PO PRN Q6HRS PRN Alprazolam 0.25 Mg Tablet 0.25 Mg PO PRN Q8HRS PRN Aspirin 325 Mg Tablet 325 Mg PO DAILY Melatonin 3 Mg Tablet 5 Mg PO QHS Omeprazole 20 Mg Tablet.dr 20 Mg PO DAILY Xarelto (Rivaroxaban) 15 Mg Tablet 15 Mg PO DAILY Ipratropium [place] 0.2 Mg/1 Ml Solution 1 Vial NEB QID Miralax (Polyethylene Glycol 3350) 17 Gm Powd.pack 1 Packet PO DAILY Valproic Acid (Valproate Sodium) 250 Mg/5 Ml Solution 1,250 Mg PO BID Simvastatin 10 Mg Tablet 1 Tab PO QHS Acidophilus Lactobacillus (Lactobacillus Acidophilus) 1 Each Capsule 1 Each PO DAILY Gabapentin (Gabapentin) 100 Mg Capsule 100 Mg PO QID Amiodarone Hcl 200 Mg Tablet 1 Tab PO DAILY Seroquel (Quetiapine Fumarate) 25 Mg Tablet 1 Tab PO BID Zoloft (Sertraline Hcl) 100 Mg Tablet 1 Tab PO DAILY Mirtazapine 15 Mg Tablet 1 Tab PO QHS Buspirone Hcl 15 Mg Tablet 20 Mg PO TID Vitals/I & O Vital Sign - Last 24 Hours 07/10/18 07/10/18 07/10/18 07/10/18 15:00 16:49 18:07 19:00 Temp 98.5 97.9 98.5 97.9 Pulse 84 89 Resp 20 18 B/P (MAP) 116/77 (90) 129/82 (98) Pulse Ox 96 97 97 98 O2 Delivery Room Air Room Air Room Air Room Air 07/10/18 07/10/18 07/10/18 07/10/18 19:10 19:53 20:00 22:28 Temp 98.1 98.1 Pulse 61 Resp 18 B/P (MAP) 107/70 (82) Pulse Ox 97 95 O2 Delivery Room Air Room Air Room Air Room Air 07/11/18 07/11/18 07/11/18 07/11/18 03:00 06:20 07:00 08:00 Temp 98.8 99.5 99.7 98.8 99.5 99.7 Pulse 69 66 78 Resp 18 18 18 B/P (MAP) 106/44 (64) 139/79 (99) 132/82 (99) Pulse Ox 95 98 95 O2 Delivery Room Air Room Air Room Air Room Air 07/11/18 07/11/18 07/11/18 08:22 08:42 11:00 Temp 98.6 98.6 Pulse 78 78 Resp 18 B/P (MAP) 132/82 125/76 (92) Pulse Ox 94 98 O2 Delivery Room Air Room Air Intake and Output 07/10/18 07/10/18 07/11/18 15:00 23:00 07:00 Intake Total 1470 ml 1000 ml Output Total 120 ml 600 ml Balance 1350 ml 1000 ml -600 ml DIMITRI MOJICA MD Jul 11, 2018 14:21
[2018-07-11] MEDS ORDERED: OXYC1TAB15 PO (14:23)
--- NOTE | 2018-07-11 14:25 | DISCH ---
DISCHARGE DISCHARGE INFORMATION: DISCHARGE DATE: Jul 11, 2018 FINAL DIAGNOSIS abdominal hernia CONDITION ON DISCHARGE: Stable CODE STATUS: Code Status: Full JAIL: SNF STAY <30 DAYS: Yes POST DISCHARGE ORDERS: ACTIVITY ORDERS: Activity as tolerated WEIGHT BEARING STATUS: As tolerated DIET AFTER DISCHARGE: Regular TREATMENT/EQUIPMENT ORDERS: ADAPTIVE EQUIPMENT NEEDED: None Physical Therapy For: Evalulation/Treatment Occupational Therapy For: Evaluation/Treatment DISCHARGE MEDICATIONS: Home Meds Active Scripts Oxycodone/Apap 5-325 (PERCOCET 5-325 MG TABLET ) 1 Each Tablet, 1 TAB PO PRN Q4HRS PRN for MILD PAIN, 1ST CHOICE, #25 TAB Prov:DIMITRI MOJICA MD 07/11/18 Reported Medications Multivitamin (MULTIVITAMINS) 1 Each Tablet, 1 TAB PO DAILY for supplement , #90 TAB 3 Refills 07/10/18 Lorazepam (ATIVAN) 0.5 Mg Tablet, 0.5 MG PO PRN Q6HRS PRN for ANXIETY / AGITATION, TAB 07/10/18 Guaifenesin/Codeine Phosphate (GUAIFENESIN AC COUGH SYRUP) 473 Ml Liquid, 10 ML PO PRN Q4HRS PRN for COUGH, #240 ML 07/10/18 Melatonin (MELATONIN) 3 Mg Tablet, 3 MG PO PRN QHS PRN for INSOMNIA, TAB 07/10/18 Albuterol Sulfate (ALBUTEROL SULFATE NEB SOLN) 0.63 Mg/3 Ml Vial.neb, 0.5 MG NEB PRN Q6HRS PRN for FOR ASTHMA, EACH 0 Refills 07/10/18 Bisacodyl (DULCOLAX) 5 Mg Tablet.dr, 10 MG RC PRN DAILY PRN for CONSTIPATION, TAB 0 Refills 07/10/18 Acetaminophen (TYLENOL) 325 Mg Tablet, 2 TAB PO PRN Q6HRS PRN for PAIN, #30 TAB 07/09/18 Alprazolam (ALPRAZOLAM) 0.25 Mg Tablet, 0.25 MG PO PRN Q8HRS PRN for ANXIETY / AGITATION, TAB 0 Refills 07/05/18 Aspirin (ASPIRIN) 325 Mg Tablet, 325 MG PO DAILY for VITAMIN, TAB 07/05/18 Melatonin (MELATONIN) 3 Mg Tablet, 5 MG PO QHS for SLEEP, TAB 07/05/18 Omeprazole (OMEPRAZOLE) 20 Mg Tablet.dr, 20 MG PO DAILY for REFLUX, TAB 07/05/18 Rivaroxaban (XARELTO) 15 Mg Tablet, 15 MG PO DAILY for DAILY, TAB 07/05/18 Ipratropium [place] (IPRATROPIUM BROMIDE) 0.2 Mg/1 Ml Solution, 1 VIAL NEB QID, #300 ML 5 Refills 10/30/17 Polyethylene Glycol 3350 (MIRALAX) 17 Gm Powd.pack, 1 PACKET PO DAILY, #30 PACKET 3 Refills 10/30/17 Valproate Sodium (VALPROIC ACID) 250 Mg/5 Ml Solution, 1250 MG PO BID for seizures, MISC 10/30/17 Simvastatin (SIMVASTATIN) 10 Mg Tablet, 1 TAB PO QHS, #30 TAB 5 Refills 10/30/17 Lactobacillus Acidophilus (ACIDOPHILUS LACTOBACILLUS) 1 Each Capsule, 1 EACH PO DAILY for probiotic, CAP 10/30/17 Gabapentin (GABAPENTIN ) 100 Mg Capsule, 100 MG PO QID, CAP 10/30/17 Amiodarone Hcl (AMIODARONE HCL) 200 Mg Tablet, 1 TAB PO DAILY, #90 TAB 1 Refill 10/30/17 Quetiapine Fumarate (SEROQUEL) 25 Mg Tablet, 1 TAB PO BID for schizo , #30 TAB 2 Refills 10/30/17 Sertraline Hcl (ZOLOFT) 100 Mg Tablet, 1 TAB PO DAILY, #30 TAB 5 Refills 10/30/17 Mirtazapine (MIRTAZAPINE) 15 Mg Tablet, 1 TAB PO QHS, #30 TAB 3 Refills 10/30/17 Buspirone Hcl (BUSPIRONE HCL) 15 Mg Tablet, 20 MG PO TID, TAB 10/30/17 Discontinued Reported Medications Lmfol Ca/Acetyl/Mb12/Algal Oil (CEREFOLIN NAC CAPLET) 1 Each Tablet, 1 EACH PO DAILY, TAB 10/30/17 Thiamine Hcl (THIAMINE HCL) 100 Mg Tablet, 100 MG PO, TAB 10/30/17 Folic Acid (FOLIC ACID) 1 Mg Tablet, 1 TAB PO DAILY, #90 TAB 1 Refill 10/30/17 Famotidine (FAMOTIDINE) 20 Mg Tablet, 20 MG PO BID, TAB 10/30/17 Aspirin (ASPIR-LOW) 81 Mg Tablet., 1 TAB PO DAILY, #30 TAB 3 Refills 10/30/17 DIMITRI MOJICA MD Jul 11, 2018 14:24
--- NOTE | 2018-07-11 14:51 | PDOC3 ---
Discharge Summary Visit Information Date of Admission: Jul 10, 2018 Date of Discharge: Jul 11, 2018 Admitting Diagnosis: abd hernia Final Diagnosis ventral hernia encephalopathy, baseline unknown, asthma, chronic GERD seizure d./o, poss bipolar, odd affect post-op Brief Hospital Course Allergies Allergies Coded Allergies Type Severity Reaction Last Updated Verified No Known Drug Allergies 07/10/18 No Vital Signs Vital Signs Date Time Temp Pulse Resp B/P (MAP) Pulse Ox O2 Delivery O2 Flow Rate FiO2 07/11/18 11:00 98.6 78 18 125/76 (92) 98 Room Air 98.6 07/10/18 13:38 2.0 Lab Results Laboratory Tests Test 07/10/18 06:40 07/10/18 07:28 07/10/18 08:53 07/10/18 11:28 Glucose (Fingerstick) 68 mg/dL (70-99) 127 mg/dL (70-99) 85 mg/dL (70-99) 117 mg/dL (70-99) Test 07/11/18 10:30 07/11/18 11:43 White Blood Count 10.6 x10^3/uL (4.0-11.0) Red Blood Count 3.87 x10^6/uL (4.30-5.70) Hemoglobin 12.2 g/dL (13.0-17.5) Hematocrit 36.8 % (39.0-53.0) Mean Corpuscular Volume 95 fL (79-100) Mean Corpuscular Hemoglobin 32 pg (25-35) Mean Corpuscular Hemoglobin Concent 33 g/dL (31-37) Red Cell Distribution Width 14.4 % (11.5-14.5) Platelet Count 154 x10^3/uL (140-400) Neutrophils (%) (Auto) 75 % (31-73) Lymphocytes (%) (Auto) 13 % (24-48) Monocytes (%) (Auto) 12 % (0-9) Eosinophils (%) (Auto) 0 % (0-3) Basophils (%) (Auto) 0 % (0-3) Neutrophils # (Auto) 7.9 x10^3uL (1.8-7.7) Lymphocytes # (Auto) 1.3 x10^3/uL (1.0-4.8) Monocytes # (Auto) 1.3 x10^3/uL (0.0-1.1) Eosinophils # (Auto) 0.0 x10^3/uL (0.0-0.7) Basophils # (Auto) 0.0 x10^3/uL (0.0-0.2) Sodium Level 143 mmol/L (136-145) Potassium Level 3.4 mmol/L (3.5-5.1) Chloride Level 106 mmol/L (98-107) Carbon Dioxide Level 27 mmol/L (21-32) Anion Gap 10 (6-14) Blood Urea Nitrogen 13 mg/dL (8-26) Creatinine 0.9 mg/dL (0.7-1.3) Estimated GFR (Cockcroft-Gault) 85.8 BUN/Creatinine Ratio 14 (6-20) Glucose Level 100 mg/dL (70-99) Calcium Level 8.8 mg/dL (8.5-10.1) Total Bilirubin 0.3 mg/dL (0.2-1.0) Aspartate Amino Transf (AST/SGOT) 16 U/L (15-37) Alanine Aminotransferase (ALT/SGPT) 25 U/L (16-63) Alkaline Phosphatase 90 U/L (46-116) Total Protein 6.7 g/dL (6.4-8.2) Albumin 3.1 g/dL (3.4-5.0) Albumin/Globulin Ratio 0.9 (1.0-1.7) Glucose (Fingerstick) 80 mg/dL (70-99) Laboratory Tests Test 07/11/18 10:30 07/11/18 11:43 White Blood Count 10.6 x10^3/uL (4.0-11.0) Red Blood Count 3.87 x10^6/uL (4.30-5.70) Hemoglobin 12.2 g/dL (13.0-17.5) Hematocrit 36.8 % (39.0-53.0) Mean Corpuscular Volume 95 fL (79-100) Mean Corpuscular Hemoglobin 32 pg (25-35) Mean Corpuscular Hemoglobin Concent 33 g/dL (31-37) Red Cell Distribution Width 14.4 % (11.5-14.5) Platelet Count 154 x10^3/uL (140-400) Neutrophils (%) (Auto) 75 % (31-73) Lymphocytes (%) (Auto) 13 % (24-48) Monocytes (%) (Auto) 12 % (0-9) Eosinophils (%) (Auto) 0 % (0-3) Basophils (%) (Auto) 0 % (0-3) Neutrophils # (Auto) 7.9 x10^3uL (1.8-7.7) Lymphocytes # (Auto) 1.3 x10^3/uL (1.0-4.8) Monocytes # (Auto) 1.3 x10^3/uL (0.0-1.1) Eosinophils # (Auto) 0.0 x10^3/uL (0.0-0.7) Basophils # (Auto) 0.0 x10^3/uL (0.0-0.2) Sodium Level 143 mmol/L (136-145) Potassium Level 3.4 mmol/L (3.5-5.1) Chloride Level 106 mmol/L (98-107) Carbon Dioxide Level 27 mmol/L (21-32) Anion Gap 10 (6-14) Blood Urea Nitrogen 13 mg/dL (8-26) Creatinine 0.9 mg/dL (0.7-1.3) Estimated GFR (Cockcroft-Gault) 85.8 BUN/Creatinine Ratio 14 (6-20) Glucose Level 100 mg/dL (70-99) Calcium Level 8.8 mg/dL (8.5-10.1) Total Bilirubin 0.3 mg/dL (0.2-1.0) Aspartate Amino Transf (AST/SGOT) 16 U/L (15-37) Alanine Aminotransferase (ALT/SGPT) 25 U/L (16-63) Alkaline Phosphatase 90 U/L (46-116) Total Protein 6.7 g/dL (6.4-8.2) Albumin 3.1 g/dL (3.4-5.0) Albumin/Globulin Ratio 0.9 (1.0-1.7) Glucose (Fingerstick) 80 mg/dL (70-99) Brief Hospital Course Mr. Connolly is a 62 old male, resident of [facility] admit for elective repair of ventral hernia Discharge Information Condition at Discharge: Improved Follow Up: Weeks Disposition/Orders: D/C to Home Scheduled Amiodarone Hcl (Amiodarone Hcl) 200 Mg Tablet, 1 TAB PO DAILY, #90 Ref 1 ( Reported) Entered as Reported by: Raiza Valenzuela on 10/30/17841 Last Taken: Unknown Dose on 07/10/18399 Last Action: Continued on 851 by JENNY GRAVES Aspirin (Aspirin) 325 Mg Tablet, 325 MG PO DAILY for VITAMIN, (Reported) Entered as Reported by: RAJ MASSEY on 07/05/18 1020 Last Taken: Unknown Dose on 07/06/18 Last Action: Continued on 07/10/18851 by JENNY GRAVES Buspirone Hcl (Buspirone Hcl) 15 Mg Tablet, 20 MG PO TID, (Reported) Entered as Reported by: Raiza Valenzuela on 10/30/17841 Last Taken: Unknown Dose on 07/09/18 Last Action: Converted on 07/10/18851 by JENNY GRAVES Gabapentin (Gabapentin ) 100 Mg Capsule, 100 MG PO QID, (Reported) Entered as Reported by: Raiza Valenzuela on 10/30/17846 Last Taken: Unknown Dose on 07/10/18399 Last Action: Continued on 851 by JENNY GRAVES Ipratropium [place] (Ipratropium [place]) 0.2 Mg/1 Ml Solution, 1 VIAL NEB QID, #300 Ref 5 (Reported) Entered as Reported by: Raiza Valenzuela on 10/30/17846 Last Taken: Unknown Dose on 07/09/18 Last Action: HELD on 07/10/18851 by JENNY GRAVES Lactobacillus Acidophilus (Acidophilus Lactobacillus) 1 Each Capsule, 1 EACH PO DAILY for probiotic, (Reported) Entered as Reported by: Raiza Valenzuela on 10/30/17846 Last Taken: Unknown Dose on 07/09/18 Last Action: Edited on 07/10/181150 by ANDRE DAWSON RN Melatonin (Melatonin) 3 Mg Tablet, 5 MG PO QHS for SLEEP, (Reported) Entered as Reported by: RAJ MASSEY on 07/05/18 1020 Last Taken: Unknown Dose on 07/09/18 Last Action: Edited on 07/10/181150 by ANDRE DWASON RN Mirtazapine (Mirtazapine) 15 Mg Tablet, 1 TAB PO QHS, #30 Ref 3 (Reported) Entered as Reported by: Raiza Valenzuela on 10/30/17 0842 Last Taken: Unknown Dose on 07/09/18 Last Action: Converted on 07/10/18851 by JENNY GRAVES Multivitamin (Multivitamins) 1 Each Tablet, 1 TAB PO DAILY for supplement , #90 Ref 3 (Reported) Entered as Reported by: ANDRE DAWSON RN on 07/10/18 115 Last Taken: UNKNOWN on Unknown Date & Time Last Action: Converted on 07/10 by DIMITRI MOJICA Omeprazole (Omeprazole) 20 Mg Tablet.dr, 20 MG PO DAILY for REFLUX, (Reported) Entered as Reported by: RAJ MASSEY on 07/05/18 1020 Last Taken: Unknown Dose on 07/10/18 0400 Last Action: Converted on 851 by JENNY GRAVES Polyethylene Glycol 3350 (Miralax) 17 Gm Powd.pack, 1 PACKET PO DAILY, #30 Ref 3 (Reported) Entered as Reported by: Raiza Valenzuela on 10/30/17 0847 Last Taken: Unknown Dose on 07/08/18 Last Action: Converted on 07/10/18851 by JENNY GRAVES Quetiapine Fumarate (Seroquel) 25 Mg Tablet, 1 TAB PO BID for schizo , #30 Ref 2 (Reported) Entered as Reported by: Raiza Valenzuela on 10/30/17 0842 Last Taken: Unknown Dose on 07/09/18 Last Action: Edited on 07/10/181150 by ANDRE DAWSON RN Rivaroxaban (Xarelto) 15 Mg Tablet, 15 MG PO DAILY for DAILY, (Reported) Entered as Reported by: RAJ MASSEY on 07/05/18 1020 Last Taken: Unknown Dose on 07/06/18 Last Action: HELD on 07/10/181450 by DIMITRI MOJICA Sertraline Hcl (Zoloft) 100 Mg Tablet, 1 TAB PO DAILY, #30 Ref 5 (Reported) Entered as Reported by: Raiza Valenzuela on 10/30/17 0842 Last Taken: Unknown Dose on 07/09/18 Last Action: Converted on 07/10/18851 by JENNY GRAVES Simvastatin (Simvastatin) 10 Mg Tablet, 1 TAB PO QHS, #30 Ref 5 (Reported) Entered as Reported by: Raiza Valenzuela on 10/30/17 0847 Last Taken: Unknown Dose on 07/09/18 Last Action: Continued on 07/10/18 0852 by JENNY GRAVES Valproate Sodium (Valproic Acid) 250 Mg/5 Ml Solution, 1,250 MG PO BID for seizures, (Reported) Entered as Reported by: Raiza Valenzuela on 10/30/17 0847 Last Taken: Unknown Dose on 07/10/18 0400 Last Action: Edited on 07/10/181152 by ANDRE DAWSON RN Scheduled PRN Acetaminophen (Tylenol) 325 Mg Tablet, 2 TAB PO PRN Q6HRS PRN for PAIN, #30 ( Reported) Entered as Reported by: SOCORRO MIRANDA on 07/09/18 1410 Last Action: HELD on 07/10/181450 by DIMITRI MOJICA Albuterol Sulfate (Albuterol Sulfate Neb Soln) 0.63 Mg/3 Ml Vial.neb, 0.5 MG NEB PRN Q6HRS PRN for FOR ASTHMA, Ref 0 (Reported) Entered as Reported by: ANDRE DAWSON RN on 07/10/181150 Last Taken: UNKNOWN on Unknown Date & Time Last Action: Converted on 07/10 by DIMITRI MOJICA Alprazolam (Alprazolam) 0.25 Mg Tablet, 0.25 MG PO PRN Q8HRS PRN for ANXIETY / AGITATION, Ref 0 (Reported) Entered as Reported by: RAJ MASSEY on 07/05/18 1020 Last Taken: Unknown Dose on 07/10/18 0430 Last Action: Edited on 07/10/181150 by ANDRE DAWSON RN Bisacodyl (Dulcolax) 5 Mg Tablet.dr, 10 MG RC PRN DAILY PRN for CONSTIPATION, Ref 0 (Reported) Entered as Reported by: ANDRE DAWSON RN on 07/10/181150 Last Taken: UNKNOWN on Unknown Date & Time Last Action: New Order on 07/10 by ANDRE DAWSON RN Guaifenesin/Codeine Phosphate (Guaifenesin Ac Cough Syrup) 473 Ml Liquid, 10 ML PO PRN Q4HRS PRN for COUGH, #240 (Reported) Entered as Reported by: ANDRE DAWSON RN on 07/10/181150 Last Taken: UNKNOWN on Unknown Date & Time Last Action: Converted on 07/10 by DIMITRI MOJICA Lorazepam (Ativan) 0.5 Mg Tablet, 0.5 MG PO PRN Q6HRS PRN for ANXIETY / AGITATION, (Reported) Entered as Reported by: ANDRE DAWSON RN on 07/10/181150 Last Taken: UNKNOWN on Unknown Date & Time Last Action: Continued on 07/10 by DIMITRI MOJICA Melatonin (Melatonin) 3 Mg Tablet, 3 MG PO PRN QHS PRN for INSOMNIA, (Reported) Entered as Reported by: ANDRE DAWSON RN on 07/10/181150 Last Taken: UNKNOWN on Unknown Date & Time Last Action: Converted on 07/10 by DIMITRI MOJICA Oxycodone/Apap 5-325 (Percocet 5-325 Mg Tablet ) 1 Each Tablet, 1 TAB PO PRN Q4HRS PRN for MILD PAIN, 1ST CHOICE, #25 Prescribed by: DIMITRI MOJICA on 07/11/18 1423 Discontinued Medications Aspirin (Aspir-Low) 81 Mg Tablet.dr, 1 TAB PO DAILY, #30 Ref 3 (Reported) Entered as Reported by: Raiza Valenzuela on 10/30/17 0847 Famotidine (Famotidine) 20 Mg Tablet, 20 MG PO BID, (Reported) Entered as Reported by: Raiza Valenzuela on 10/30/17 0847 Folic Acid (Folic Acid) 1 Mg Tablet, 1 TAB PO DAILY, #90 Ref 1 (Reported) Entered as Reported by: Raiza Valenzuela on 10/30/17 0847 Lmfol Ca/Acetyl/Mb12/Algal Oil (Cerefolin Nac Caplet) 1 Each Tablet, 1 EACH PO DAILY, (Reported) Entered as Reported by: Raiza Valenzuela on 10/30/17 0847 Thiamine Hcl (Thiamine Hcl) 100 Mg Tablet, 100 MG PO, (Reported) Entered as Reported by: Raiza Valenzueal on 10/30/17 0847 Patient Instructions Patient Instructions cont current pain ok pt and Ot, plan SNU, DIMITRI MOJICA MD Jul 11, 2018 14:51
--- NOTE | 2018-07-11 14:57 | NUR ---
SS following up with discharge planning. Discharge orders received for return to [facility] [place]. SS phoned and faxed discharge orders to [facility], ; fax [phone]. Pt will discharge today and return to [facility]. [facility] to provide transportation. Pt and pt's RN notified.
[2018-07-11 15:00] VITALS: BP 105/70
--- NOTE | 2018-07-11 15:56 | NUR ---
Patient was escorted out of hospital for discharge by transport from [facility]. I attempted to call to give report 2 times @[phone] with no answer and no VM.
== END 2018-07-11 15:58 ==
LOC: SURG 06:04 → 4 NORTH 08:47
PROVIDERS: ADMIT Surgery; ATTEND Surgery
DX: K43.9 Ventral hernia without obstruction or gangrene (principal); I25.2 Old myocardial infarction; I50.9 Heart failure, unspecified; G93.40 Encephalopathy, unspecified; J45.909 Unspecified asthma, uncomplicated; K21.9 Gastro-esophageal reflux disease without esophagitis; R56.9 Unspecified convulsions; Z86.74 Personal history of sudden cardiac arrest
CPT/HCPCS: 36415; 49560; 49568; 80053; 82962; 85025; 94640; 94760; 96374; 96375; 96376; A7015; G0378; G0379; J0360; J0696; J1100; J1170; J2001; J2250; J2405; J2710; J3010; J3490; J7120; J7620; J7042